=== PATIENT | male | born 1990 | race Caucasian/White ===

== ENCOUNTER 2017-05-08 11:18 | Emergency (ER) | payer BC, OTHER ==
[~2017-05-08] VITALS: Ht 175.3 cm; Wt 74.8 kg
[2017-05-08] MEDS ORDERED: NORFLEX100 MG PO (12:42)
[2017-05-08] MEDS ORDERED: NAPROSYN500 MG PO (12:42)
== END 2017-05-08 14:18 | disposition home or self-care (01) ==
LOC: ER 11:18
DX: S39.012A Strain of muscle, fascia and tendon of lower back, initial encounter (principal); L21.9 Seborrheic dermatitis, unspecified; F10.99 Alcohol use, unspecified with unspecified alcohol-induced disorder; X58.XXXA Exposure to other specified factors, initial encounter; Y93.89 Activity, other specified; Y92.89 Other specified places as the place of occurrence of the external cause; Y99.8 Other external cause status